=== PATIENT | male | born 1985 | race Two or more races ===

== ENCOUNTER 2021-05-21 13:27 | Emergency (ER) | payer SELFPAY ==
[~2021-05-21] VITALS: Ht 167.6 cm; Wt 83.0 kg
[~2021-05-21 13:27] MED LIST: FAMO20TA5 PO; LISI10TA16 PO
[2021-05-21 14:18] VITALS: BP 135/89
--- NOTE | 2021-05-21 15:04 | RAD ---
EXAM: Right knee, 3 views. HISTORY: Pain. COMPARISON: None. FINDINGS: 3 views of the right knee are obtained. There is no fracture, dislocation or subluxation. T here is a trace joint effusion. IMPRESSION: No acute osseous finding. Trace joint effusion. Electronically signed by: Sherrell Mendez MD (05/21/2021 3:02 PM) [id number]
[2021-05-21] MEDS ORDERED: METH4TAB2 PO (16:00)
[2021-05-21] MEDS ORDERED: NAPR-514 PO (16:00)
--- NOTE | 2021-05-21 16:01 | PHYS DOC ---
Past Medical History Past Medical History: No Pertinent History Past Surgical History: No Surgical History Smoking Status: Never Smoker Alcohol Use: Sober Additional Information: SOBER X 2 YEARS Drug Use: Marijuana General Adult EDM: Chief Complaint: LOWER EXT PAIN HPI: HPI: Patient is a 36 year old male patient presented to the ED today complaining of 4 out of 10 right knee pain, he states he has history of chronic right knee pain for 5 years and has been following up with a chiropractor who has done x-rays of his right knee and told him his right knee is okay. He states he was at [employer] and his knee felt gave out. Patient denies any injuries. Review of Systems: Review of Systems: Constitutional: Denies fever or chills. [] Musculoskeletal: Reports right knee pain Integument: Denies rash. [] Neurologic: Denies headache, focal weakness or sensory changes. [] Psychiatric: Denies depression or anxiety. [] Heart Score: C/O Chest Pain: N/A Risk Factors: Risk Factors: DM, Current or recent (<one month) smoker, HTN, HLP, family history of CAD, obesity. Risk Scores: Score 0 - 3: 2.5% MACE over next 6 weeks - Discharge Home Score 4 - 6: 20.3% MACE over next 6 weeks - Admit for Clinical Observation Score 7 - 10: 72.7% MACE over next 6 weeks - Early Invasive Strategies Allergies: Allergies: Allergies Coded Allergies Type Severity Reaction Last Updated Verified No Known Drug Allergies 10/28/15 No Physical Exam: PE: Constitutional: Well developed, well nourished, no acute distress, non-toxic appearance. [] Skin: Warm, dry, no erythema, no rash. [] Back: No tenderness, no CVA tenderness. [] Extremities: Right knee with no obvious deformity, no ecchymosis, no bruising, no tenderness, full range of motion to the right knee. +2 right pedal pulse. Cap refill less than 2 seconds right lower extremity. Sensation intact to the right lower extremity Neurologic: Alert and oriented X 3, normal motor function, normal sensory function, no focal deficits noted. [] Psychologic: Affect normal, judgement normal, mood normal. [] Current Patient Data: Vital Signs: Vital Signs Date Time Temp Pulse Resp B/P (MAP) Pulse Ox O2 Delivery O2 Flow Rate FiO2 05/21/21 14:18 98.2 77 12 135/89 (104) 97 Room Air 98.2 EKG: EKG: [] Radiology/Procedures: Radiology/Procedures: []PROCEDURE: KNEE RIGHT 3V EXAM: Right knee, 3 views. HISTORY: Pain. COMPARISON: None. FINDINGS: 3 views of the right knee are obtained. There is no fracture, dislocation or subluxation. There is a trace joint effusion. IMPRESSION: No acute osseous finding. Trace joint effusion. Electronically signed by: Sherrell Mendez MD (05/21/2021 3:02 PM) [id number] DICTATED and SIGNED BY: SHERRELL MENDEZ MD DATE: 05/21/21 [id number] 0 Course & Med Decision Making: Course & Med Decision Making Pertinent Labs and Imaging studies reviewed. (See chart for details) This is a 36-year-old male patient presented to the ED today complaining of right knee pain for 5 days, yesterday he was attached and the knee almost gave out. Right knee x-rays interpreted by radiologist were negative for any acute findings, noted for trace joint effusion. Patient understands Swedish and seem to speak some more weight. I went to give patient results. He requested charge loader line. I got the charge loader line. We were on hold for a long time waiting for somebody to interpret for Chinese. Patient had Google translate on his phone. We started communicating about the plan of care with [employer] sharepoint designer developer. Informed him he has to follow-up with a specialist. Informed him I will give him the orthopedic doctors contact [facility] and he can call the office. Patient got frustrated waiting for the charge loader line to go through, he actually took the handset and hanged up the phone in my face while i was waiting for the charge loader. He stood up removed his armband and started leaving. I then told him is not try to hung up the charge loader line because now we have to restart the call again. He went to the front office supervisor and he was rerouted back to his room I went in with the charge nurse, we put a knee brace on him, we called the charge loader line again, it took a long time to get somebody on the line. Somebody came on the line, we started communicating. Informed patient he needs to follow-up with the provided Orthopedic doctor. He states his friend had a similar problem and it was fixed here at [place]. Informed him he needs to contact the orthopedic doctor and they can set up an appointment to address his knee issues. He again tried to hang up the phone while we were talking through the charge loader. He stats the knee brace is not going to help him in any way he already has a better one. He started removing it to saying he needs to be thrown in the trash. Informed patient it is very unfortunate we gave him a knee brace and now he wants to throw it into trash. Informed him we cannot even recycle the knee brace either He removed his knee brace, he got up and walked away Dragon Disclaimer: Dragon Disclaimer: This electronic medical record was generated, in whole or in part, using a voice recognition dictation system. Departure Departure Impression: Primary Impression: Knee pain, acute Qualified Codes: M25.561 - Pain in right knee Additional Impression: Joint effusion of knee Qualified Codes: M25.461 - Effusion, right knee Disposition: HOME / SELF CARE / HOMELESS Condition: STABLE Referrals: NO PCP (PCP) YOU HARKINS II, MD follow up in one week Patient Instructions: Knee Effusion, [id number], Knee Pain, [id number] Additional Instructions: You were evaluated in the emergency room for right knee pain, your right knee x- rays are negative for any acute findings. You have small amount of fluid in your right knee that your body will be able to absorb. Kindly follow-up with the provided orthopedic doctor next week. Wear the knee immobilizer provided as tolerated. Scripts Naproxen (NAPROXEN) 500 Mg Tablet 1 TAB PO BID for pain, #14 TAB 0 Refills Prov: CHARLENE PETER ORTHOPEDIC RADIOLOGIC TECHNOLOGIST 05/21/21 Methylprednisolone (MEDROL) 4 Mg Tab.ds.pk 1 PKG PO UD, #1 PKG Prov: CHARLENE PETER ORTHOPEDIC RADIOLOGIC TECHNOLOGIST 05/21/21 CHARLENE PETER ORTHOPEDIC RADIOLOGIC TECHNOLOGIST May 21, 2021 16:01
== END 2021-05-21 16:14 | disposition home or self-care (01) ==
LOC: ER 13:27
DX: M25.561 Pain in right knee (principal); G89.29 Other chronic pain; M25.461 Effusion, right knee
CPT/HCPCS: 29505; 73562; 99283